=== PATIENT | male | born 1955 | race Caucasian/White ===

== ENCOUNTER 2019-02-19 12:31 | Emergency (ER) | payer MEDICARE ==
[2019-02-19] MEDS ORDERED: Tetracaine 0.5% OPTH.SOL 4 ML* 1 DROP BTL RIGHT EYE ONE (12:47)
[2019-02-19] MEDS ORDERED: Fluorescein Sodium TOPICAL* 1 MG TEST STRIP OPHTHALMIC ONE (12:52)
[2019-02-19] MEDS ORDERED: Tetan/Diph/Pertus SYR(Tdap)* 0.5 ML SYR(BOOSTRIX) use SYR contains LATEX IM ONE (12:53)
--- NOTE | 2019-02-19 13:23 | ED ---
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 Patient states he fell yesterday and thinks he got a small foreign body in his right eye around 7 o'clock position of the cornea. Patient reports some eye pain with blinking. 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 He was glasses and denies contats. He is unsure of his last tetanus shot. No visual deficits. - History of Current Complaint Chief Complaint: EDEyeProblem Time Seen by Provider: 02/19/19 12:42 - Allergies/Home Medications Allergies/Adverse Reactions: Allergies Allergy/AdvReac Type Severity Reaction Status Date / Time MS Immune Globulin Allergy Severe CHEST Verified 03/30/15 13:43 [From Octagam] TIGHTNESS, DESATURATION MS Rifampin [Rifampin] Allergy Unknown Verified 03/30/15 13:43 Reaction Details MS Carbamazepine AdvReac Severe Hallucinati Verified 03/30/15 13:43 [From Tegretol] ons PMH/Surg Hx/FS Hx/Imm Hx Endocrine/Hematology History: Denies: Hx Diabetes Cardiovascular History: Denies: Hx Congestive Heart Failure, Hx Hypertension, Hx Pacemaker/ICD Respiratory History: Reports: Other Respiratory Problems/Disorders - 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 Denies: Hx Asthma History: Reports: Hx Kidney Stones Denies: Hx Dialysis, Hx Renal Disease Musculoskeletal History: Reports: Hx Orthopedic Injury - Fall with injury to L leg Sensory History: Denies: Hx Hearing Aid Neurological History: Reports: Other Neuro Impairments/Disorders - Guillain- Buckhorn, vertigo, neuralgias, AIDP, TBI 2016 Psychiatric History: Denies: Hx Panic Disorder - Surgical History Surgery Procedure, Year, and Place: kidney stones Infectious Disease History: No Infectious Disease History: Denies: Hx Clostridium Difficile, Hx Hepatitis, Hx Human Immunodeficiency Virus (HIV), Hx of Known/Suspected MRSA, Hx Shingles, Hx Tuberculosis, Hx Known/ Suspected VRE, Hx Known/Suspected VRSA, History Other Infectious Disease, Traveled Outside the [place] in Last 30 Days - Social History Alcohol Use: None Substance Use Type: Reports: None Smoking Status (MU): Never Smoked Tobacco Review of Systems Positive: Other - foreign body All Other Systems Reviewed And Are Negative: Yes Physical Exam - Summary Physical Exam Summary: General: Well appearing, no distress HEENT: PERRL. CN 6 palsy R eye. R eye fluorescein exam with a corneal abrasion approximately 7 o'clock position of the eye. No foreign body noted. Cardiovascular: Skin is well perfused Pulmonary: No respiratory distress, no tachypnea Abdomen: Non-distended Skin: Warm, pink, dry MSK: no edema Psych: Normal affect Neuro: A&Ox3 Vital Signs On Initial Exam: Initial Vitals Temp Pulse Resp BP Pulse Ox 98.4 F 59 18 156/73 95 02/19/19 12:37 02/19/19 12:37 02/19/19 12:37 02/19/19 12:37 02/19/19 12:37 Procedures - Sedation Patient Received Moderate/Deep Sedation with Procedure: No - Eye Procedure Left Alcaine Drops Administered: No - tetracaine used, no FB seen Diagnostics - Vital Signs Vital Signs Temp Pulse Resp BP Pulse Ox 02/19/19 12:37 98.4 F 59 18 156/73 95 - Laboratory Lab Statement: Any lab studies that have been ordered have been reviewed, and results considered in the medical decision making process. EENT Course/Dx - Course Course Of Treatment: 63 y/o male p/w concern for FB of eye. - unable to visualize FB, does have corneal abrasion. Tetanus updated. Given erythromycin ointment for eye. - Diagnoses Provider Diagnoses: Corneal abrasion Discharge ED - Sign-Out/Discharge Documenting (check all that apply): Patient Departure - Discharge - Discharge Plan Condition: Stable Disposition: HOME Prescriptions: Erythromycin OPHTH.OINT* [Ilotycin OPHTH.OINT*] 1 applic LEFT EYE TID 5 Days #1 ophth.oint Patient Education Materials: Corneal Abrasion (ED) Referrals: Joe Contreras MD [Primary Care Provider] - Additional Instructions: Please use erythromycin cream 3 times per day for your corneal abrasion. You got a tetanus shot today. It was a pleasure taking care of you. - Billing Disposition and Condition Condition: STABLE Disposition: Home - Attestation Statements Document Initiated by Scribe: Yes Documenting Scribe: Gloria Johnson Provider For Whom Scribe is Documenting (Include Credential): Cal Wan MD. Scribe Attestation: I, Gloria Johnson, scribed for Cal Wan MD. on 02/19/19 at 1511. Scribe Documentation Reviewed: Yes Provider Attestation: The documentation as recorded by the scribe, Gloria Johnson accurately reflects the service I personally performed and the decisions made by me, Cal Wan MD. Status of Scribe Document: Ready
[2019-02-19 13:40] VITALS: BP 00/00
== END 2019-02-19 13:30 | disposition home or self-care (01) ==
LOC: ED 12:31
DX: S05.01XA Injury of conjunctiva and corneal abrasion without foreign body, right eye, initial encounter (principal); W19.XXXA Unspecified fall, initial encounter; Y92.9 Unspecified place or not applicable; Z23 Encounter for immunization; H49.10 Fourth [trochlear] nerve palsy, unspecified eye; H49.20 Sixth [abducent] nerve palsy, unspecified eye; Z88.8 Allergy status to other drugs, medicaments and biological substances
CPT/HCPCS: 90471; 90715; 99282; A9270-GY